=== PATIENT | male | born 1975 | race Caucasian/White ===

== ENCOUNTER 2016-12-06 22:26 | Emergency (ER) | payer MEDICAID ==
[~2016-12-06] VITALS: Ht 182.9 cm; Wt 95.3 kg
[2016-12-07] MEDS ORDERED: KETOROLAC TROMETH 60MG/2ML VIAL IM ONE (01:30)
[2016-12-07 01:36] VITALS: BP 143/89
== END 2016-12-07 03:35 | disposition home or self-care (01) ==
LOC: ER 22:32
DX: M54.2 Cervicalgia (principal); V89.2XXA Person injured in unspecified motor-vehicle accident, traffic, initial encounter; Y93.89 Activity, other specified; Y99.8 Other external cause status; Y92.89 Other specified places as the place of occurrence of the external cause
CPT/HCPCS: 96372; 99283; J1885